=== PATIENT | male | born 1990 | race Caucasian/White ===

== ENCOUNTER 2019-03-02 11:28 | Emergency (ER) | payer SELFPAY ==
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
--- NOTE | 2019-03-02 13:33 | ER Document Report ---
HPI - HPI Time Seen by Provider: 03/02/19 12:52 Pain Level: Denies Notes: 28-year-old male presents the ED for complaints of black spots to his penis, rides bikes and was concerned about ticks. Denies any penile pain, scrotal pain. Denies any penile discharge. Has not tried any [id number] medications. Patient also reports he cut his finger, left index finger at distal tip on a knife approximately over 24 hours ago. States last tetanus was maybe 10 years ago. Denies any pain, bleeding is well controlled. Denies fevers, chills, chest pain,palpitations, shortness of breath, dyspnea, nausea, vomiting, diarrhea, abdominal pain, hematuria,blurred vision, double vision, loss of vision, speech changes, LH, dizziness, syncope, headaches, wheezing, ST, URI, neck pain, weakness, bowel or bladder dysfunction, saddle anesthesia, numbness or tingling in bilateral upper or lower extremities equally, muscle paralysis, weakness in bilateral upper or lower extremities equally or rash. Past Medical History - General Information source: Patient - Social History Smoking Status: Current Every Day Smoker Family History: Reviewed & Not Pertinent Patient has suicidal ideation: No Patient has homicidal ideation: No Vertical Provider Document - CONSTITUTIONAL Agree With Documented VS: Yes Exam Limitations: No Limitations General Appearance: WD/WN Notes: PHYSICAL EXAMINATION: GENERAL: Well-appearing, well-nourished and in no acute distress. HEAD: Atraumatic, normocephalic. EYES: Pupils equal round and reactive to light, extraocular movements intact, sclera anicteric, conjunctiva are normal. ENT: Nares patent, oropharynx clear without exudates. Moist mucous membranes. NECK: Normal range of motion, supple without lymphadenopathy LUNGS: Breath sounds clear to auscultation bilaterally and equal. No wheezes rales or rhonchi. HEART: Regular rate and rhythm without murmurs ABDOMEN: Soft, nontender, nondistended abdomen. No guarding, no rebound. No masses appreciated. : WILL Kapadia, joy operator. Appears to be a blackhead to dorsal aspect of the penile shaft. No take or bugs noted. Both testicles descended, no drainage from penile shaft, no irritation at meatus Musculoskeletal: Normal range of motion, no pitting or edema. No cyanosis. NEUROLOGICAL: Cranial nerves grossly intact. Normal speech, normal gait. Normal sensory, motor exams PSYCH: Normal mood, normal affect. SKIN: Warm, Dry, normal turgor, no rashes or lesions noted. 0.5 linear old laceration to right index finger at distal tip, no erythema induration or warmth to touch. Cap refill less than 3 seconds, unix analyst +2 in bilateral extremities equally. Negative kanavels sign. No open wounds or drainage from wrist. No vascular compromise.No body crepitus or focal area of TTP. no pain with opposition, flexion, extension, abduction and adduction on left. Motor and sensory function of ulnar, radial, medial nerves intact bilaterally and equally. strength 5/5 in BUE equally. Course - Re-evaluation Re-evalutation: 03/02/19 13:30 Afebrile vital stable no distress. Nurse's notes reviewed. Will write a prescription for patient to receive 200 mg of doxycycline p.o. once to treat for any Lyme disease. Monitor site for any worsening symptoms such as redness, swelling, drainage. Follow-up with your primary care provider within the next 24 to 48 hours. If any symptoms become worse such as penile pain, scrotal pain, return to the emergency room immediately. After performing a Medical Screening Examination, I estimate there is LOW risk for ACUTE APPENDICITIS, BOWEL OBSTRUCTION, ACUTE CHOLECYSTITIS, PERFORATED DIVERTICULITIS, INCARCERATED HERNIA, PANCREATITIS, TESTICULAR TORSION or PERFORATED ULCER, thus I consider the discharge disposition reasonable. Also, there is no evidence or peritonitis, sepsis, or toxicity. I have reevaluated this patient multiple times and no significant life threatening changes are noted. The patient and I have discussed the diagnosis and risks, and we agree with discharging home with close follow-up with the understanding that symptoms and presentations can change. We also discussed returning to the Emergency Department immediately if new or worsening symptoms occur. We have discussed the symptoms which are most concerning (e.g., bloody stool, fever, changing or worsening pain, intractable vomiting - standard verbal up date) that necessitate immediate return. - Vital Signs Vital signs: Temp Pulse Resp BP Pulse Ox 98.4 F 69 18 105/74 99 03/02/19 11:35 03/02/19 11:35 03/02/19 11:35 03/02/19 11:35 03/02/19 11:35 Discharge - Discharge Clinical Impression: tick exposure Condition: Stable Disposition: HOME, SELF-CARE Instructions: Tick Bites ([facility]) Additional Instructions: Take 200 mg of doxycycline once to eliminate occurrence of possibility of Lyme disease. Monitor site for any worsening signs or symptoms such as redness, swelling, drainage. Follow-up with your primary care provider within the next 24 to 48 hours. Return immediately for any new or worsening symptoms. Follow up with primary care provider, call tomorrow to make followup appointment. Prescriptions: Doxycycline Monohydrate 200 mg PO ONCE PRN #2 capsule PRN Reason: Forms: Return to Work Referrals: TINO LAMAS MD [COMMUNITY BASED STAFF] - Follow up as needed
[2019-03-02] MEDS ORDERED: DIPH/PERTUSS(ACELL)/TETANUS VAC/PF 0.5 ML SYR (>=10YO) IM ONE (13:41)
[2019-03-02 14:22] VITALS: BP 111/70
== END 2019-03-02 14:25 | disposition home or self-care (01) ==
LOC: ER 11:28
DX: N48.9 Disorder of penis, unspecified (principal); S61.210A Laceration without foreign body of right index finger without damage to nail, initial encounter; X58.XXXA Exposure to other specified factors, initial encounter; W57.XXXA Bitten or stung by nonvenomous insect and other nonvenomous arthropods, initial encounter; Z23 Encounter for immunization
CPT/HCPCS: 90471; 90715; 99281